=== PATIENT | female | born 1990 ===

== ENCOUNTER 2020-01-29 01:16 | Emergency (ER) | payer SELFPAY ==
[~2020-01-29] VITALS: Ht 170.2 cm; Wt 98.0 kg
--- NOTE | 2020-01-29 01:21 | NUR ---
NIL X1
[2020-01-29 01:28] VITALS: BP 151/91
--- NOTE | 2020-01-29 03:11 | NUR ---
pt was escorted off prpperity from lobby as there was an icident with another person in lobby, who called 911, police in lobby with security at this time, pt not on premesis
== END 2020-01-29 03:15 ==
LOC: ED 02:00
DX: M79.10 Myalgia, unspecified site (principal); Z53.21 Procedure and treatment not carried out due to patient leaving prior to being seen by health care provider

== ENCOUNTER 2020-01-29 06:50 | Emergency (ER) | payer OTHER ==
[~2020-01-29] VITALS: Ht 170.2 cm; Wt 90.0 kg
[2020-01-29] MEDS ORDERED: SODIUM CHLORIDE 0.9% 1,000ML IVBOLUS ONE (07:30)
--- NOTE | 2020-01-29 07:58 | NUR ---
Pt arrives artered, A/O X 3, does not respond to all questions, delayed answers at times. Pt cooperative. Poor historian. PIV placed, bolus infusing.
[2020-01-29 08:23] LABS: ALANINE AMINOTRANSFERASE 17 U/L (12-78); ALBUMIN 4.5 g/dL (3.4-5.0); ANION GAP 9 mmol/L (5-15); BASOPHILS % (AUTO) 0 % (0-1); CALCIUM 9.5 mg/dL (8.5-10.1); CHLORIDE 105 mmol/L (98-107); CREATININE 1.02 mg/dL (0.55-1.02); EOSINOPHILS % (AUTO) 1 % (1-7); LYMPHOCYTES % (AUTO) 28 % (22-44); MEAN CORPUSCULAR HEMOGLOBIN 29.2 pg (27.0-34.8); MEAN CORPUSCULAR HGB CONC 32.9 g/dL (32.4-35.8); MEAN PLATELET VOLUME 8.1 fL (7.4-10.4); MONOCYTES % (AUTO) 8 % (2-9); NEUTROPHILS % (AUTO) 63 % (42-75); PLATELET COUNT 305 x10^3/uL (130-400); RED CELL DISTRIBUTION WIDTH 13.6 % (9.6-15.2); SALICYLATE LEVEL 2.8 mg/dL (2.8-20.0)
[2020-01-29 08:27] LABS: ALKALINE PHOSPHATASE 58 U/L (45-117); BILIRUBIN,TOTAL 0.4 mg/dL (0.2-1.0); TOTAL PROTEIN 9.1 g/dL (6.4-8.2)
[2020-01-29 08:35] LABS: MD NO
[2020-01-29 09:42] LABS: AMPHETAMINE SCREEN, URINE Positive (Negative); BARBITURATE SCREEN, URINE Negative (Negative); BENZODIAZEPINE SCREEN, URINE Negative (Negative); CANNABINOID SCREEN, URINE Positive (Negative); COCAINE SCREEN, URINE Positive (Negative); METHADONE SCREEN, URINE Negative (Negative); OPIATE SCREEN, URINE Negative (Negative)
--- NOTE | 2020-01-29 09:50 | NUR ---
Pt pulled out PIV. Pt more talkitive but still confused. States that she inhaled something but doesnt know what. VS updated.
--- NOTE | 2020-01-29 10:06 | NUR ---
Pt wandering around the halls, instructed to stay in room for sfaety. PA notified, spoke with pt regarding reason for needing to stay in hospital at this time, concerns about pt safety. Pt seems ammenable. Diet tray ordered, coffee provided.
--- NOTE | 2020-01-29 10:32 | NUR ---
Provided with food tray, pt tearful, not speaking.
[2020-01-29] MEDS ORDERED: HALOPERIDOL 5 MG/ML ONE (10:46)
[2020-01-29] MEDS ORDERED: HALOPERIDOL 5 MG/ML IM ONE (11:00)
--- NOTE | 2020-01-29 11:11 | NUR ---
Pt isabel DOHERTY, has repeatedly attemted to grab scissors from RN and teck. Haldol given. Sitter at bedside. VSWNL
--- NOTE | 2020-01-29 11:55 | NUR ---
PT SLEEPING ON GURNEY IN NAD, EVEN UNLABORED RESPIRATIONS. SITTER AT BEDSIDE.
--- NOTE | 2020-01-29 11:59 | NUR ---
MEI BELTRAN RN AT BEDSIDE FOR EVAL.
[2020-01-29] MEDS ORDERED: LORazepam 1MG TABLET ONE (12:11)
--- NOTE | 2020-01-29 12:20 | NUR ---
Pt attempt to elope, slapped mask off of tech. security at bedide.
[2020-01-29] MEDS ORDERED: LORazepam 1MG TABLET PO ONE (12:30)
--- NOTE | 2020-01-29 12:49 | NUR ---
Waiting for [employer]
[2020-01-29 14:06] VITALS: BP 142/81
--- NOTE | 2020-01-29 14:07 | NUR ---
Pt is oriented, per Kaylyn DOHERTY, pt is medically cleared. Provided with [facility].
== END 2020-01-29 14:14 | disposition home or self-care (01) ==
LOC: ED 10:17
DX: F15.159 Other stimulant abuse with stimulant-induced psychotic disorder, unspecified (principal); F15.129 Other stimulant abuse with intoxication, unspecified; F14.129 Cocaine abuse with intoxication, unspecified; F16.10 Hallucinogen abuse, uncomplicated; R41.0 Disorientation, unspecified
CPT/HCPCS: 36415; 70450; 80053; 80299; 80307; 80320; 80329; 82140; 84703; 85025; 96360; 96372; 99285; J1630; J7030; 99284; G0480

== ENCOUNTER 2020-01-29 16:39 | Emergency (ER) | payer OTHER ==
[~2020-01-29] VITALS: Ht 170.2 cm; Wt 97.3 kg
[2020-01-29 17:14] VITALS: BP 116/91
--- NOTE | 2020-01-29 20:15 | NUR ---
pt called to room, not here
--- NOTE | 2020-01-29 20:30 | NUR ---
pt to room from lobby- not here
--- NOTE | 2020-01-29 20:53 | NUR ---
pt to room from lobby-not in lobby
== END 2020-01-29 20:56 | disposition left against medical advice (07) ==
LOC: ED 17:00
DX: R06.00 Dyspnea, unspecified (principal); F19.10 Other psychoactive substance abuse, uncomplicated; R00.0 Tachycardia, unspecified
CPT/HCPCS: 93005; 99283